=== PATIENT | female | born 1975 | race Hispanic/Latino ===

== ENCOUNTER 2017-07-23 11:02 | Outpatient (CLI) | payer BC ==
[2017-07-23 13:45] LABS: Mean Platelet Volume 8.4 fL (7.4-10.4); Red Blood Cell (RBC) Count 4.65 mill/uL (4.20-5.40); White Blood Cell (WBC) Count 6.2 thou/uL (4.8-10.8)
[2017-07-23 14:09] LABS: Anion Gap 10 mmol/L (10-20); BUN (Urea Nitrogen) 11 mg/dL (7.0-18.7); Calc. Creatinine Clearance 0 mL/min (70-130); Calcium 9.4 mg/dL (7.8-10.44); Carbon Dioxide 25 mmol/L (22-29); Chloride 107 mmol/L (98-107); Estimated GFR-MDRD Greater than 90
--- NOTE | 2017-08-08 13:27 | EKG ---
Test Reason : Blood Pressure : / mmHG Vent. Rate : 084 BPM Atrial Rate : 084 BPM P-R Int : 142 ms QRS Dur : 074 ms QT Int : 354 ms P-R-T Axes : 045 016 006 degrees QTc Int : 418 ms Normal sinus rhythm with sinus arrhythmia Normal ECG When compared with ECG of 09-MAR-2017 11:56, No significant change was found Confirmed by MONTANA AIVLA MD ([id number]) on 08/08/2017 1:26:36 PM Referred By: [facility] Confirmed By:MONTANA AVILA MD
== END 2017-07-23 11:03 | disposition home or self-care (01) ==
LOC: LABBT 11:02
PROVIDERS: ATTEND Internal Medicine Cardiovascular Disease
DX: Z01.812 Encounter for preprocedural laboratory examination (principal); I47.1 Supraventricular tachycardia
CPT/HCPCS: 80048; 85027; 93005; 93010

== ENCOUNTER → 2017-07-27 | Day surgery (SDC) | payer BC ==
[2017-07-23 11:23] VITALS: BMI 43.5
[~2017-07-27] MED LIST: Acetaminophen 325 MG TAB ONE; Bisacodyl 10 MG SUPP PR PRN; Bisacodyl 5 MG TAB PO PRN; Famotidine/PF 20 mg/2ml Vial ONE; Fentanyl 100 MCG/2 ML VIAL ONE; Heparin 1000 UNIT/NS 500ML(OR) 500 ML ONE; Isoproterenol 0.2 MG/1 ML AMP ONE; Mag-Al 1200 mg/1200 mg/30 ML UDCUP PO PRN; Midazolam HCl 2 mg/2 ml Vial ONE; Nitroglycerin 0.4 MG TAB (25 Tab Bottle) SL PRN; Ondansetron HCl/PF 4 MG/2 ML Vial IVP PRN; Ondansetron HCl/PF 4 MG/2 ML Vial ONE; PHENYLEPHRINE-NS 100 MCG/ML 10 ML SYRINGE ONE; Propofol 1,000 MG/100 ML VIAL IV ONE; Propofol 200 MG/20 ML VIAL ONE; Silver Sulfadiazine 1% Cream 50 GM JAR TOP PRN; Temazepam 15 MG CAP PO PRN; diphenhydrAMINE 25 MG CAP PO PRN
[2017-07-27 07:11] LABS: PTT 31.2 SEC (22.9-36.1); Prothrombin Time 13.3 SEC (12.0-14.7)
--- NOTE | 2017-07-27 20:03 | CCLSPC ---
DATE OF PROCEDURE: 07/27/2017 ELECTROPHYSIOLOGY STUDY REFERRING PHYSICIAN: Dr. Wang REASON FOR PROCEDURE: Ms. Gil is a pleasant 41-year-old woman with prior history of frequent extra heartbeat sensations followed by sustained tachyarrhythmia. This has never been properly documented , but due to the suspicion of SVT, we decided to proceed with an EP study and possible ablation. PROCEDURE: The patient received deep sedation by Anesthesia specialist. After adequate level of sed ation achieved, the left femoral vein was prepped, draped, and anesthetized using subcutaneous lidoca ine and with multipurpose needle and ultrasound guidance, the left femoral vein was cannulated x2 with a 6 and 8-Lithuanian catheter was inserted. Through these, a 7-Lithuanian decapolar catheter was adv anced to the CS position and octapolar 6-Lithuanian catheter was advanced to the right ventricular of His bundle at right atrial positions. Pacing, mapping, and recording were performed in each location. Following the procedure, Isuprel was also used to stimulate induction of arrhythmias. Hence, only at rial fibrillation was induced, which required cardioversion. At this point, the procedure was termin ated and no ablation was performed. RESULTS: Baseline cycle length 60 milliseconds, DC 155, QRS 90 milliseconds, QT 365 milliseconds, AH 61, HV 43 milliseconds. The patient had normal sinus, no recovery time. The AV Wenckebach cycle le ngth was 320 milliseconds. She is improved after 200 milliseconds on 4 mcg of Isuprel. No preexcita tion was documented throughout this, although with pretty much atrial excess to my testing, left bund le elaboration was observed. VA conduction time was measured to be 218 milliseconds. Wenckebach cyc le length with concentric retrograde CS activation is seen. Atrial access to my testing reveals no e vidence of dual AV cortez physiology on and off either. Burst atrial pacing did not induce SVT, but s ustained atrial fibrillation was seen. This was promptly cardioverted back to sinus rhythm and was n ot being induced after this. Ventricular access to my testing was performed were up to 3 ventricular access stimuli on Isuprel basiloi led to induce any ventricular arrhythmias. CONCLUSIONS: 1. No evidence of supraventricular tachycardia or ventricular tachycardia induced. 2. Sustained atrial fibrillation was cardioverted back to sinus rhythm. 3. No evidence of slow pathway or accessory pathway is documented. PLAN: At this point, we will attempt flecainide for suppression of the patient's atrial fibrillation symptoms. Should that fail, she might be a candidate for pulmonary venous isolation. POS: [facility]
== END ==
LOC: CCL 06:10
PROVIDERS: ATTEND Internal Medicine Cardiovascular Disease
DX: I49.1 Atrial premature depolarization (principal); I47.1 Supraventricular tachycardia; F41.8 Other specified anxiety disorders; I10 Essential (primary) hypertension; Z79.2 Long term (current) use of antibiotics; Z79.899 Other long term (current) drug therapy; Z88.6 Allergy status to analgesic agent; Z88.1 Allergy status to other antibiotic agents; Z88.5 Allergy status to narcotic agent; Z98.84 Bariatric surgery status; Z90.710 Acquired absence of both cervix and uterus; Z90.49 Acquired absence of other specified parts of digestive tract; Z98.890 Other specified postprocedural states
CPT/HCPCS: 36415; 36416; 76942; 85610; 85730; 92960; 93005; 93620; 93623; C1730; C1769; J1644; J2250; J2405; J2704; J3010; S0028

== ENCOUNTER 2019-05-09 18:54 | Emergency (ER) | payer BC ==
[2019-05-09 19:32] LABS: #Basophils 0.1 thou/uL (0.0-0.2); #Eosinphils 0.3 thou/uL (0.0-0.7); #Lymphocytes 2.6 thou/uL (1.20-3.40); #Monocytes 0.7 thou/uL (0.11-0.59); #Neutrophils 9.1 thou/uL (1.40-6.50); %Basophils 0.7 % (0.0-1.0); %Eosinophils 2.5 % (0.0-10.0); %Monocytes 5.7 % (0.0-10.0); %Neutrophils 71.1 % (42.0-75.0); Hemoglobin 12.2 g/dL (12.0-16.0); Mean Corpuscular HGB CONC 32.8 g/dL (32.0-36.0); Mean Corpuscular Hemoglobin 27.3 pg (27.0-31.0); Mean Corpuscular Volume 83.5 fL (78.0-98.0); Mean Platelet Volume 8.3 fL (7.4-10.4); Platelet Count 316 thou/uL (130-400); RBC Distribution Width 13.7 % (11.5-14.5); Red Blood Cell (RBC) Count 4.44 mill/uL (4.20-5.40); White Blood Cell (WBC) Count 12.8 thou/uL (4.8-10.8)
[2019-05-09 19:39] LABS: INR-International Normal Ratio 1.1; PTT 28.1 SEC (22.9-36.1); Prothrombin Time 13.8 SEC (12.0-14.7)
[2019-05-09 19:53] LABS: ALT (SGPT) 13 U/L (8-55); AST (SGOT) 16 U/L (5-34); Albumin 3.8 g/dL (3.5-5.0); Alkaline Phosphatase 148 U/L (40-110); Anion Gap 11 mmol/L (10-20); BUN (Urea Nitrogen) 13 mg/dL (7.0-18.7); Bilirubin, Total 0.3 mg/dL (0.2-1.2); Calc. Creatinine Clearance 0 mL/min (70-130); Calcium 8.6 mg/dL (7.8-10.44); Carbon Dioxide 25 mmol/L (22-29); Chloride 104 mmol/L (98-107); Estimated GFR-MDRD 82; Globulin 3.4 g/dL (2.4-3.5); Glucose 134 mg/dL (70-105); Potassium 3.7 mmol/L (3.5-5.1); Protein, Total 7.2 g/dL (6.0-8.3); Sodium 136 mmol/L (136-145)
[2019-05-09 21:44] LABS: Bilirubin Negative (Negative); Blood, Urine Negative (Negative); Clarity Clear (Clear); Glucose, Urine (Dipstick) Normal (Negative); Leukocyte Negative Leu/uL (Negative); Nitrite Negative (Negative); Protein, Urine (Dipstick) Negative (Neg-Trace); Urobilinogen Normal mg/dL (Less than 2)
== END 2019-05-09 22:30 | disposition left against medical advice (07) ==
LOC: ERS 18:54
DX: Z53.21 Procedure and treatment not carried out due to patient leaving prior to being seen by health care provider (principal)
CPT/HCPCS: 36415; 80053; 81003; 85025; 85610; 85730